=== PATIENT | male | born 1960 | race Caucasian/White ===

== ENCOUNTER 2016-08-23 13:32 | Emergency (ER) | payer OTHER ==
[2016-08-23 17:30] VITALS: BP 107/84
== END 2016-08-23 17:30 | disposition home or self-care (01) ==
LOC: ED 13:32 → EDBD 13:32 → ED 17:30
DX: F10.129 Alcohol abuse with intoxication, unspecified (principal)
CPT/HCPCS: 83880; G0480; J7030

== ENCOUNTER 2016-08-23 21:00 | Emergency (ER) | payer OTHER ==
[2016-08-24 02:30] VITALS: BP 110/60
== END 2016-08-24 02:30 | disposition home or self-care (01) ==
LOC: ED 21:00
DX: F10.129 Alcohol abuse with intoxication, unspecified (principal)